=== PATIENT | male | born 1975 | race Caucasian/White ===

== ENCOUNTER 2024-04-04 18:29 | Emergency (ER) | payer MEDICAID, SELFPAY ==
[2024-04-04 19:00] VITALS: BP 120/92; PULSE 93; RESP 19; TEMP 36.6; O2SAT 98; BMI 28.1
--- NOTE | 2024-04-04 19:06 | EXP.UTC ---
Discharge Plan Disposition Patient Disposition: Home, Self-Care Condition: Good Prescriptions Prescriptions: New clindamycin HCl 300 mg capsule 300 mg PO Q8H 10 Days Qty: 30 0RF mupirocin 2 % ointment 1 applic topical TID 7 Days Qty: 15 0RF Referrals Follow up/Referrals: Provider,Referral, MD [Primary Care Provider] - See instructions Activity Restrictions/Add. Instructions Additional Instructions/Restrictions: Keep the wounds clean and dry. Watch the wounds for signs of worsening infection, such as worsening redness, swelling, drainage, fever. etc. Take tylenol or ibuprofen for pain. Follow up with your regular doctor. We will culture the drainage from the wound. That will tell what bacteria is causing your infection and which antibiotics will treat it best. This test takes 3 days to complete. Please follow up in 3 days to go over these results and possibly have the medications adjusted. GO TO THE ER FOR ANY WORSENING SYMPTOMS OR CONCERNS. Clinical Impressions Clinical Impression: Abscess of skin, Cellulitis of arm, right Instructions Patient Instructions: Cellulitis, Clindamycin, Ceftriaxone Injection, Mupirocin, DI for Skin Abscess Print Language Print Language: Lithuanian Discharge ED Provider: Lc Adair [facility] [place] General Stated complaint: spider bites on r wrist w/swelling Time Seen by Provider: 04/04/24 19:06 History of Present Illness Provider Complaint: He states that for the past 3 days he has had worsening redness and 2 areas of swelling on his right forearm. He denies any fever/chills/malaise. Related Data Previous Rx's ?Medication ?Instructions ?Recorded clindamycin HCl 300 mg capsule 300 mg PO Q8H 10 days #30 caps 04/04/24 mupirocin 2 % topical ointment 1 applic topical TID 7 days #15 04/04/24 grams Allergies Allergy/AdvReac Type Severity Reaction Status Date / Time sulfamethoxazole (From Allergy Unknown Verified 04/04/24 19:11 Bactrim) allergy reaction trimethoprim (From Bactrim) Allergy Unknown Verified 04/04/24 19:11 allergy reaction [facility] Disclaimer: The information contained in this section may have been updated after the patient was seen, as this information can be updated by other users. Medical History (Updated 04/04/24 @ 20:23 by Lc Adair APRN) No significant past medical history Social History Smoking Status: Never smoker alcohol intake: never current occupational status: employed Travel in the last 8 weeks: None ROS Obtained: Yes All systems reviewed & no additional complaints except as documented Constitutional Constitutional: Denies chills and Denies fever(s) Eyes Eyes: Denies eye discharge ENT Ears, Nose, Mouth, and Throat: Denies dizziness, Denies otalgia and Denies sore throat Cardiovascular Cardiovascular: Denies chest pain Respiratory Respiratory: Denies shortness of breath, Denies chest congestion, Denies cough, Denies stridor and Denies wheezing Gastrointestinal Gastrointestingal: Denies nausea or vomiting Musculoskeletal Musculoskeletal: Reports system reviewed and no additional complaints, except as documented and Denies arthralgias Integumentary/Breasts Skin/Breast: Reports as per HPI and Reports wounds Neurologic Neurologic: Denies dizziness and Denies paresthesias Allergic/Immunologic Allergic/Immunologic: Denies wheezing Physical Exam General General appearance: alert and in no apparent distress Head Head exam: atraumatic, normocephalic and normal inspection Eye Eye exam: Present normal appearance, PERRL and EOMI ENT ENT exam: Present normal exam, normal oropharynx, mucous membranes moist, TM's normal bilaterally and normal external ear exam Neck Neck exam: Present normal inspection, full ROM and trachea midline; Absent meningismus or lymphadenopathy Chest Chest inspection: Present normal inspection and symmetric chest wall rise; Absent tenderness Respiratory Respiratory exam: Present normal lung sounds bilaterally; Absent respiratory distress Cardiovascular Cardiovascular exam: Present regular rate and normal rhythm; Absent JVD Abdominal Exam Abdominal exam: Present soft and normal bowel sounds; Absent distention, tenderness or guarding Extremities Exam Extremities exam: Present normal inspection, full ROM and normal capillary refill; Absent calf tenderness Back Exam Back exam: Present normal inspection; Absent tenderness Neurological Exam Neurological exam: Present alert and oriented X3 Psychiatric Psychiatric exam: Present normal affect and normal mood Skin Skin exam: Present erythema Lymphatic Lymphatic Findings: no adenopathy Medical Decision Making Medical Records Medical records reviewed: No I reviewed the patient's medical records. Screening: Per USPSTF and CDC recommendations, given the prevalence of disease in our region, it is our hospital?s policy to screen for HIV and viral Hepatitis for all patients aged 18 and over and those with ongoing risk factors. Matias Inquiry Pt receiving controlled substance: No
[2024-04-04] MEDS: cefTRIAXone 1GM VIAL 1 GM IM (19:59)
[2024-04-04] MEDS: LIDOCAINE 1% 5ML PF VIAL IM (19:59)
[2024-04-04 20:25] VITALS: BP 120/92; PULSE 93; RESP 19; TEMP 36.6; O2SAT 98
--- NOTE | 2024-04-07 18:37 | PC.NURSE ---
REVIEWED PATIENT'S WOUND CULTURE WITH Corey VEGAS APRN. CURRENT ANTIBIOTIC CHANGED TO DOXYCYCLINE PER Corey VEGAS APRN. ANTIBIOTIC CALLED TO [facility] AT THIS TIME. ATTEMPTED TO NOTIFY PATIENT WITH NO ANSWER AND NO VOICE MAILBOX TO LEAVE MESSAGE.
== END 2024-04-04 20:30 | disposition home or self-care (01) ==
PROVIDERS: Emergency Provider Nurse Practitioner Family
DX: L03.113 Cellulitis of right upper limb (principal); L02.91 Cutaneous abscess, unspecified; R22.31 Localized swelling, mass and lump, right upper limb
CPT/HCPCS: 87070; 87077; 87186; 87205; 96372; 99212; G0381; J0696

== ENCOUNTER 2024-07-11 00:13 | Emergency (ER) | payer OTHER, SELFPAY ==
[2024-07-11 00:19] VITALS: BP 139/95; PULSE 97; RESP 18; TEMP 36.6; O2SAT 98; BMI 26.4
--- NOTE | 2024-07-11 00:34 | XR_ITS ---
PROCEDURE INFORMATION: Exam: XR Left Finger(s) Exam date and time: 07/11/2024 12:26 AM Age: 48 years old Clinical indication: Pain; Other: Finger; Additional info: Possible metal shard in distal L pinky TECHNIQUE: Imaging protocol: Radiologic exam of the left fingers. Views: Minimum 2 views. Total images: 3 COMPARISON: No relevant prior studies available. FINDINGS: Bones/joints: No acute fracture or joint dislocation. Unremarkable joint spaces. No concerning bone lesions. Soft tissues: Distal soft tissue swelling. Very fine 4 mm linear foreign body in the soft tissues adjacent to the distal phalanx. IMPRESSION: 1. Very fine 4 mm linear foreign body in the soft tissues of the distal 5th finger. 2. No acute osseous abnormality 3. Soft tissue swelling associated with the foreign body.
[2024-07-11] MEDS: TET/DIPHTH/PERT-ADULT 0.5ML SYRINGE 0.5 ML IM (00:45)
[2024-07-11] MEDS: BACITRACIN ZINC OINT 30GM TUBE TP (00:57)
[2024-07-11] MEDS: cephALEXin 500MG CAPSULE 500 MG PO (00:57)
[2024-07-11 00:59] VITALS: BP 140/90; PULSE 97; RESP 20; TEMP 36.8; O2SAT 98
--- NOTE | 2024-07-11 00:59 | HMH.EDGENADL ---
Discharge Plan Disposition Patient Disposition: Home, Self-Care Condition: Good Prescriptions Prescriptions: New cephalexin 500 mg capsule 500 mg PO Q6H 7 Days Qty: 28 0RF No Action clindamycin HCl 300 mg capsule 300 mg PO Q8H 10 Days Qty: 30 0RF mupirocin 2 % ointment 1 applic topical TID 7 Days Qty: 15 0RF clindamycin HCl 300 mg capsule 300 mg PO Q8H 10 Days Qty: 30 0RF Referrals Follow up/Referrals: Jean Ross DO [Staff Physician] - See instructions (establish care, small finger foreign body refused removal) Provider,Referral, [Primary Care Provider] - See instructions Activity Restrictions/Add. Instructions Additional Instructions/Restrictions: You were evaluated in the ER and are appropriate for discharge at this time. Use the provided bacitracin ointment on the wound twice daily. Take the prescribed antibiotics as directed, do not skip doses, do not stop taking them early. Keep the wound clean and dry. Shower/bathe like normal. Soak the wound in warm soapy water for 15 to 20 minutes 3-4 times a day. Follow-up with your primary care doctor for reevaluation in few days. You have been referred to Dr. Ross for this purpose. Return to the ER with new, worsening, or otherwise concerning symptoms. Clinical Impressions Clinical Impression: Foreign body in skin of left little finger Instructions Patient Instructions: DI for Skin Abscess Print Language Print Language: Belarusian Discharge ED Provider: Krissy Lucero General Adult HPI General Chief complaint: Skin/Abscess/Foreign Body Stated complaint: L pinky foreign object, swelling Time Seen by Provider: 07/11/24 00:32 Mode of Arrival: Ambulatory Source of Information: Patient Description of Symptoms (Recalled from ER Triage Doc. by RN): pt presents to ed for eval of possible metal stuck in his left pinky finger that was noticed today after working on truck, Pt reports unknown if tetanus is UTD. History of Present Illness HPI narrative: 48-year-old male presents to the ER for concerns of wound and possible small piece of metal stuck in left pinky finger. He reports he has been working on a vehicle and saw a black speck . He states he dug around with his pocket knife but thinks there may still be a piece of metal in it. He states it is somewhat sore and is requesting antibiotics. He does not recall the last time he had a tetanus shot. Denies illicit drug use. No pain radiating up the finger. Pain is isolated to the distal tip of the left pinky. Patient reports he usually wears gloves but was not today. No fevers, chills, or other systemic symptoms. No other concerns. Patient reports allergy to Bactrim. He states he has to be to work early in the morning and would like to leave as soon as possible. Related Data Previous Rx's ?Medication ?Instructions ?Recorded clindamycin HCl 300 mg capsule 300 mg PO Q8H 10 days #30 caps 04/04/24 mupirocin 2 % topical ointment 1 applic topical TID 7 days #15 04/04/24 grams clindamycin HCl 300 mg capsule 300 mg PO Q8H 10 days #30 caps 04/06/24 cephalexin 500 mg capsule 500 mg PO Q6H 7 days #28 caps 07/11/24 Allergies Allergy/AdvReac Type Severity Reaction Status Date / Time sulfamethoxazole (From Allergy Unknown Verified 04/04/24 19:11 Bactrim) allergy reaction trimethoprim (From Bactrim) Allergy Unknown Verified 04/04/24 19:11 allergy reaction PFSH PFSH Disclaimer: The information contained in this section may have been updated after the patient was seen, as this information can be updated by other users. Medical History (Updated 07/11/24 @ 00:57 by Krissy Lucero MD) No significant past medical history Social History (Updated 04/04/24 @ 20:35 by Lc Adair APRN) Smoking Status: Unknown if ever smoked alcohol intake: never current occupational status: employed Travel in the last 8 weeks: None Have you lived/traveled outside [place] in past 30 days?: No Contact w/someone who lives/traveled outside [place] past 30 days?: No Exposure to someone with infectious disease in past 14 days?: No Do you have a fever (greater than 100.4 F or 38 C)?: No Have you tested positive for COVID-19: No Exposed to someone with COVID-19 in past 14 days?: No Do you have a sore throat?: No Do you have a cough?: No Do you have any weakness?: No Do you have any diarrhea?: No Are you experiencing any unusual bleeding?: No Do you have any muscle aches/pain?: No Do you have any abdominal pain?: No Are you experiencing loss of taste or smell?: No ROS Obtained: Yes Systems reviewed as appropriate & no additional complaints except as documented Per HPI Physical Exam General General appearance: alert and in no apparent distress Head Head exam: atraumatic and normocephalic Eye Eye exam: Present PERRL and EOMI ENT ENT exam: Present mucous membranes moist Neck Neck exam: Present normal inspection and full ROM Chest Chest inspection: Present symmetric chest wall rise Respiratory Respiratory exam: Absent respiratory distress or stridor Cardiovascular Cardiovascular exam: Present regular rate and normal rhythm Extremities Exam Extremities exam: Present full ROM Expanded Upper Extremity Exam Left: Hand exam: Present other (Patient neurovascularly intact despite wound on left pinky, no tenderness or redness extending along the flexor tendon. No other injuries or abnormalities.) Hand L/R front image: 1. other (2 mm round wound with mild surrounding induration and redness, no fluctuance, no purulence, no obvious foreign body) Neurological Exam Neurological exam: Present alert and oriented X3; Absent motor sensory deficit Psychiatric Psychiatric exam: Present normal affect and normal mood Skin Skin exam: Present warm and dry Medical Decision Making Medical Records Medical records reviewed: Yes I reviewed the patient's medical records. Screening: Per USPSTF and CDC recommendations, given the prevalence of disease in our region, it is our hospital?s policy to screen for HIV and viral Hepatitis for all patients aged 18 and over and those with ongoing risk factors. MR Comment: Patient treated in [facility] for skin abscess in April 2024 with clindamycin Matias Inquiry Pt receiving controlled substance: No Vital Signs: 07/11/24 00:19 Temperature 98 F Temperature Source Oral Pulse Rate [Radial] 97 H Respiratory Rate 18 Blood Pressure [Right Arm] 139/95 H Blood Pressure Mean [Right Arm] 109 Blood Pressure Position [Right Arm] Sitting 02 Sat by Pulse Oximetry 98 Oxygen Delivery Method Room Air Orders (Tests/Meds): ED MEDICATIONS Generic Name Dose Route Start Last Admin Trade Name Freq PRN Reason Stop Dose Admin Bacitracin 1 gm 07/11/24 00:55 07/11/24 00:57 Bacitracin Zinc Oint 30gm Tube TP 07/11/24 00:56 2 inch ONCE ONE Administration Cephalexin HCl 500 mg 07/11/24 00:54 07/11/24 00:57 Cephalexin 500mg Capsule PO 07/11/24 00:55 500 mg ONCE ONE Administration Discontinued Medications Generic Name Dose Route Start Last Admin Trade Name Jazzmine PRN Reason Stop Dose Admin Tetanus/Reduced Diphtheria/Acell Pertussis 0.5 ml 07/11/24 00:36 07/11/24 00:45 Tet/Diphth/Pert-Adult 0.5ml Syringe IM 07/11/24 00:37 0.5 ml .ONCE ONE Administration ORDERS Category Date Time Status POCUS Point of Care (ER Only) Stat Exams 07/11/24 00:45 Ordered XR finger LT min 2V Stat Exams 07/11/24 00:34 Taken Medical Decision Narrative: In summary, 48-year-old male who reports being otherwise healthy presents to the ER with concerns of possible foreign body and infection of the left pinky. He is requesting antibiotics believing to have a small piece of metal in the distal tip of the left pinky. On initial evaluation he is hemodynamically stable, afebrile, small wound at the palmar aspect distal tip of the left pinky as described in physical exam with mild surrounding induration and erythema but no extension along the flexor tendon, no pain along the flexor tendon, no pain with passive movement, no evidence of flexor tenosynovitis, there is evidence of mild surrounding cellulitis but no abscess or fluctuance. No obvious foreign body to visual inspection. Metal foreign body should be radiopaque so x-ray was ordered. On personal interpretation of x-ray I do appreciate a very small, hair-like radiopaque foreign body. According to patient this could be a metal shard or wire. I used ultrasound to visualize the wound and foreign body better. The foreign body is extremely small and thin. See procedure note for details. I recommended to the patient that I numb the finger and explore the wound to attempt to remove the foreign body. He refused this stating he would prefer to just get antibiotics and go home because he has to work early. He understands this could lead to worsening infection and that the foreign body may very well stay in his body causing other problems including infection, pain, abscess, and that worsening infection could be dangerous to his finger or eventually his life. He has the capacity to make this decision and still refuses the procedure. Patient's tetanus was updated and he was given Keflex in the ER. Wound was covered with bacitracin. Bacitracin was provided to him as well as instructions on using this. I also gave him instructions on wound care, provided a prescription for antibiotics as well as directions on antibiotic use, provided a referral to primary care doctor for follow-up and to establish care, and gave the patient strict instructions for return precautions to the ER. He indicated understanding and the patient was discharged in stable condition. Critical Care Critical Care Time Critical Care Time: No
== END 2024-07-11 01:00 | disposition home or self-care (01) ==
PROVIDERS: Emergency Provider Emergency Medicine
DX: S60.457A Superficial foreign body of left little finger, initial encounter (principal); M79.645 Pain in left finger(s); Z23 Encounter for immunization; W45.8XXA Other foreign body or object entering through skin, initial encounter; Y93.89 Activity, other specified; Y92.9 Unspecified place or not applicable
CPT/HCPCS: 73140; 90471; 90715; 99283